=== PATIENT | male | born 1965 | race African-American/Black ===

== ENCOUNTER 2016-06-06 17:44 | Emergency (ER) | payer SELFPAY ==
[~2016-06-06] VITALS: Ht 170.2 cm; Wt 81.6 kg
[~2016-06-06 17:44] MED LIST: LISI-334 PO; METF500T4 PO
[2016-06-06 17:58] VITALS: BP 160/95
--- NOTE | 2016-06-06 18:27 | PHYS DOC ---
Past Medical History Past Medical History: Diabetes-Type II, Hypertension Past Surgical History: No Surgical History Alcohol Use: Occasionally Drug Use: Cocaine, Marijuana Adult General Chief Complaint Chief Complaint: CONSTIPATION HPI HPI 51 year-old male who states he's had difficulty with bowel movements for the last 2 or 3 weeks. He states he had a small bowel movement today but had heart noted hard stool. He does state he has some significant pain in his rectal area when attempting to have bowel movements. He denies any significant abdominal surgery. He denies any nausea or vomiting. He does have some mild lower abdominal discomfort with his constipation. He has tried multiple over-the- counter medications for his symptoms. He states he has history of diabetes but denies any other significant health problems. Patient is passing a large amount of flatus. Review of Systems Review of Systems Constitutional: Denies fever or chills [] Eyes: Denies change in visual acuity, redness, or eye pain [] HENT: Denies nasal congestion or sore throat [] Respiratory: Denies cough or shortness of breath [] Cardiovascular: No additional information not addressed in HPI [] GI: Denies abdominal pain, nausea, vomiting, bloody stools or diarrhea [] : Denies dysuria or hematuria [] Musculoskeletal: Denies back pain or joint pain [] Integument: Denies rash or skin lesions [] Neurologic: Denies headache, focal weakness or sensory changes [] Endocrine: Denies polyuria or polydipsia [] Allergies Allergies Allergies Coded Allergies Type Severity Reaction Last Updated Verified No Known Drug Allergies 06/17/13 No Physical Exam Physical Exam Constitutional: Well developed, well nourished, no acute distress, non-toxic appearance. [] HENT: Normocephalic, atraumatic, bilateral external ears normal, oropharynx moist, no oral exudates, nose normal. [] Eyes: PERRLA, EOMI, conjunctiva normal, no discharge. [] Neck: Normal range of motion, no tenderness, supple, no stridor. [] Cardiovascular:Heart rate regular rhythm, no murmur [] Lungs & Thorax: Bilateral breath sounds clear to auscultation [] Abdomen: Bowel sounds hypoactive, soft, mild lower abdominal wall tenderness, no masses, no pulsatile masses. [] Skin: Warm, dry, no erythema, no rash. [] Back: No tenderness, no CVA tenderness. [] Extremities: No tenderness, no cyanosis, no clubbing, ROM intact, no edema. [] Neurologic: Alert and oriented X 3, normal motor function, normal sensory function, no focal deficits noted. [] Psychologic: Affect normal, judgement normal, mood normal. [] Current Patient Data Vital Signs Vital Signs Date Time Temp Pulse Resp B/P Pulse Ox O2 Delivery O2 Flow Rate FiO2 06/06/16 17:58 98.3 82 15 160/95 98 Room Air 98.3 EKG EKG [] Radiology/Procedures Radiology/Procedures Abdominal series as interpreted by me did not demonstrate any acute findings. There is no evidence of any free air. There is no evidence of any obstruction. Course & Med Decision Making Course & Med Decision Making Pertinent Labs and Imaging studies reviewed. (See chart for details) This 51-year-old male with ongoing constipation will have an acute abdominal series to rule out any acute abnormality. An enema will be administered. If the patient feels improved, he'll be discharged with a course of MiraLAX and will follow closely with his primary care doctor. On my final reassessment, the patient continues to have minimal to no abdominal pain. He has no nausea or vomiting. An ammonia was mildly successful and the patient states he feels significant improvement. I'll be discharging him with MiraLAX and giving him express instructions to drink plenty of fluids and have a diet that is high in fiber and follow closely with his primary care doctor next several days for symptom resolution. There is no indication at this time to perform any other laboratory workup. Dragon Disclaimer Dragon Disclaimer This electronic medical record was generated, in whole or in part, using a voice recognition dictation system. Departure Departure Impression: Primary Impression: Constipation Disposition: 01 HOME, SELF-CARE Admitting Physician: Other Condition: IMPROVED Referrals: NO PCP (PCP) Patient Instructions: Constipation, Adult, [id number] Additional Instructions: Please take your miralax as prescribed. Return to the ER if you develop any worsening of your symptoms. Return to the ER immediately if you develop any nausea or vomiting or worsening abdominal pain. Follow up closely with your primary doctor in the next several days for your symptoms. Scripts Polyethylene Glycol 3350 (Miralax)17 Gm Powd.pack1 Pkt PO DAILY #5 PKT Prov:DIVINE MACKAY DO 06/06/16 DIVINE MACKAY DO Jun 06, 2016 18:27
[2016-06-06] MEDS ORDERED: POLY17PO5 PO (20:29)
--- NOTE | 2016-06-07 08:12 | RAD ---
Abdomen series with chest, 3 views, 06/06/2016: History: Constipation The abdominal gas pattern is unremarkable. No free air is seen in the abdomen. There is no evidence of organomegaly. Minimal pelvic calcifications are probably vascular. There is mild spurring in the spine. The heart size and pulmonary vascularity are normal. The lungs are clear. There is no evidence of pleural fluid. IMPRESSION: No acute abdominal abnormality is detected.
== END 2016-06-06 20:38 | disposition home or self-care (01) ==
LOC: ER 17:44
DX: K59.00 Constipation, unspecified (principal); I10 Essential (primary) hypertension; E11.9 Type 2 diabetes mellitus without complications; F14.10 Cocaine abuse, uncomplicated; F12.10 Cannabis abuse, uncomplicated
CPT/HCPCS: 74022; 99284

== ENCOUNTER 2017-10-17 19:11 | Emergency (ER) | payer SELFPAY ==
[2017-10-17] MEDS: LIDOCAINE 1%/EPI 1:100,000 20 ML VIAL. INJ (19:39)
[2017-10-17 20:17] LABS: POC GLUCOSE 168 mg/dL (70-99)
== END 2017-10-17 20:39 | disposition home or self-care (01) ==
LOC: ER 19:11
DX: N49.2 Inflammatory disorders of scrotum (principal); E11.9 Type 2 diabetes mellitus without complications; I10 Essential (primary) hypertension; J44.9 Chronic obstructive pulmonary disease, unspecified; F17.210 Nicotine dependence, cigarettes, uncomplicated; F12.10 Cannabis abuse, uncomplicated; F11.10 Opioid abuse, uncomplicated; Z79.899 Other long term (current) drug therapy
CPT/HCPCS: 10060; 82962; 87071; 87075; 99283-25; J3490

== ENCOUNTER 2021-03-05 10:17 | Emergency (ER) | payer MEDICAID ==
[~2021-03-05] VITALS: Ht 170.2 cm; Wt 71.8 kg
[~2021-03-05 10:17] MED LIST changes: +ACET-704 PO; -LISI-334 PO; +LISI10TA16 PO; +LISI20TA18 PO; +METF500T16 PO; -METF500T4 PO; +POLY17PO29 PO; +SULF1TAB24 PO
[2021-03-05 10:34] VITALS: BP 134/78
--- NOTE | 2021-03-05 10:55 | PHYS DOC ---
Past Medical History Past Medical History: Bronchitis, COPD, Diabetes-Type II, Hypertension Past Surgical History: Pacemaker Additional Past Surgical Histo: AICD 11/2020 @ [facility] Smoking Status: Current Every Day Smoker Additional Information: 0.5 PPD Alcohol Use: None Drug Use: Cocaine, Marijuana General Adult EDM: Chief Complaint: SHOUDLER HPI: HPI: Patient is a 55 year old man who presents with right-sided neck, shoulder, and arm pain. He woke up with the symptoms 3 days ago. 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 Patient states he feels like the pain radiates from his neck into his shoulder, scapula, and right arm. Causes tingling in all 5 fingers. Described as a burning sensation. Denies any weakness, or difficulty moving the arm. No trauma to the neck or to the shoulder. Denies any chest pain Denies fever, chills, swelling of the shoulder, rashes or skin changes. No IVDU or immunosuppression Review of Systems: Review of Systems: Constitutional: Denies fever or chills. [] Eyes: Denies change in visual acuity. [] HENT: Denies nasal congestion or sore throat. [] Respiratory: Denies cough or shortness of breath. [] Cardiovascular: Denies chest pain or edema. [] GI: Denies abdominal pain, nausea, vomiting, bloody stools or diarrhea. [] : Denies dysuria. [] Musculoskeletal: Denies back pain or joint pain. [] Integument: Denies rash. [] Neurologic: Reports burning pain in the right arm radiating to the hand. Endocrine: Denies polyuria or polydipsia. [] Lymphatic: Denies swollen glands. [] Psychiatric: Denies depression or anxiety. [] Heart Score: C/O Chest Pain: No Risk Factors: Risk Factors: DM, Current or recent (<one month) smoker, HTN, HLP, family history of CAD, obesity. Risk Scores: Score 0 - 3: 2.5% MACE over next 6 weeks - Discharge Home Score 4 - 6: 20.3% MACE over next 6 weeks - Admit for Clinical Observation Score 7 - 10: 72.7% MACE over next 6 weeks - Early Invasive Strategies Allergies: Allergies: Allergies Coded Allergies Type Severity Reaction Last Updated Verified No Known Drug Allergies 3/2/14 No Physical Exam: PE: Constitutional: Well developed, well nourished, no acute distress, non-toxic appearance. [] HENT: Normocephalic, atraumatic, bilateral external ears normal, oropharynx moist, no oral exudates, nose normal. [] Eyes: PERRLA, EOMI, conjunctiva normal, no discharge. [] Neck: Normal range of motion, no tenderness, supple, no stridor. [] Cardiovascular:Heart rate regular rhythm, no murmur [] Lungs & Thorax: Bilateral breath sounds clear to auscultation [] Abdomen: Bowel sounds normal, soft, no tenderness, no masses, no pulsatile masses. [] Skin: Warm, dry, no erythema, no rash. [] Back: No tenderness, no CVA tenderness. [] Extremities: No tenderness, no cyanosis, no clubbing, ROM intact, no edema. [] Neurologic: Alert and oriented X 3, normal motor function, normal sensory function, no focal deficits noted. [] Specifically 5/5 strength in bilateral: Shoulder abduction Elbow flexion/extension Wrist flexion/extension Manufacturing Director strength Internal and external rotation of the shoulder Psychologic: Affect normal, judgement normal, mood normal. [] Current Patient Data: Vital Signs: Vital Signs Date Time Temp Pulse Resp B/P (MAP) Pulse Ox O2 Delivery O2 Flow Rate FiO2 03/05/21 10:22 98.4 76 20 134/78 (96) 100 Room Air 98.4 EKG: EKG: [] Radiology/Procedures: Radiology/Procedures: [] Course & Med Decision Making: Course & Med Decision Making Pertinent Labs and Imaging studies reviewed. (See chart for details) Patient 55-year-old male who presents with symptoms concerning for a right-sided cervical radiculopathy. No risk factors for spinal epidural abscess, or weakness to necessitate MRI emergently. No trauma to necessitate CT imaging. No evidence of trauma to the shoulder and has painless range of motion. Do not feel shoulder x-rays would be beneficial. He has not tried any conservative treatment measures. Will recommend NSAIDs. I have reviewed return precautions including fever/chills, or new weakness to the arm. Dragon Disclaimer: Michelle Disclaimer: This electronic medical record was generated, in whole or in part, using a voice recognition dictation system. Departure Departure Impression: Primary Impression: Cervical radicular pain Disposition: HOME / SELF CARE / HOMELESS Condition: STABLE Referrals: NO PCP (PCP) Patient Instructions: Cervical Radiculopathy Additional Instructions: For pain tylenol and ibuprofen are best used on a schedule. Please alternate between the two. -Tylenol 1000 mg every 6 hours (do not exceed 4000 mg in one day) -Ibuprofen 600 mg every 6 hours. Take with food. Do not take for more than 1 week. If you develop weakness in your arm, high fevers/chills, severe swelling in your shoulder, or other new/concerning symptoms please return to the emergency department for reevaluation immediately. Since you do not have a PCP, please call the number for the [facility] at [phone]. Primary care doctors have the ability to initiate other treatment such as physical therapy if pain persists. TANIKA GALLEGOS MD Mar 05, 2021 10:55
--- NOTE | 2021-03-05 11:07 | EKG ---
[facility] [address] [place] [address] Test Date: 2021-03-05 Test Time: 10:29:48 Pat Name: BENJAMIN DUBOIS Department: Room: Gender: M [employer] Sten[employer]: : 1965 Requested By: TANIKA GALLEGOS Order Number: [id number] Reading MD: Tim Herndon Measurements Intervals [place] Rate: 81 P: 9 W[place]: 168 QRS: -28 QRSD: 88 T: 47 QT: 420 QTc: 488 Interpretive Statements SINUS RHYTHM LEFT ATRIAL ABNORMALITY LEFTWARD AXIS CONSIDER LEFT VENTRICULAR HYPERTROPHY PROLONGED QT ABNORMAL ECG RI6.01 No previous ECG available for comparison Electronically Signed On 03-08-2021 9:22:43 ASSOCIATE FINANCIAL REPRESENTATIVE by Tim Herndon
== END 2021-03-05 11:00 | disposition home or self-care (01) ==
LOC: ER 10:50
DX: M54.12 Radiculopathy, cervical region (principal); M25.511 Pain in right shoulder; J44.9 Chronic obstructive pulmonary disease, unspecified; E11.9 Type 2 diabetes mellitus without complications; I10 Essential (primary) hypertension; F17.200 Nicotine dependence, unspecified, uncomplicated; Z95.0 Presence of cardiac pacemaker
CPT/HCPCS: 93005; 99283